=== PATIENT | male | born 1960 | race Caucasian/White ===

== ENCOUNTER → 2016-09-10 | Outpatient (CLI) | payer OTHER ==
[~2016-09-10] MED LIST: HYDR-2890 PO; HYDR1TAB PO
--- NOTE | 2016-09-10 10:13 | Diagnostic Imaging Report ---
INDICATION: Chronic left hip pain. FINDINGS: Two views of the left hip show no fracture or dislocation. The joint spaces are well-maintained. The articular surfaces are smooth. IMPRESSION: Negative left hip. Dictated by: Dictated on workstation # [id number]
== END ==
LOC: RAD 09:51
PROVIDERS: ATTEND Family Medicine
DX: M25.552 Pain in left hip (principal); G89.29 Other chronic pain
CPT/HCPCS: 73502

== ENCOUNTER 2017-03-22 10:27 | Emergency (ER) | payer OTHER ==
[~2017-03-22] VITALS: Ht 177.8 cm; Wt 94.8 kg
[2017-03-22] MEDS ORDERED: LOSA100T28 (11:11)
[2017-03-22] MEDS ORDERED: OXYC-465 (11:11)
[2017-03-22] MEDS ORDERED: ALPR0.5T7 (11:11)
[2017-03-22] MEDS ORDERED: DEXT20TA8 (11:11)
[2017-03-22] MEDS ORDERED: ALLO300T2 (11:11)
[2017-03-22] MEDS ORDERED: FLUT16SP22 (11:11)
[2017-03-22] MEDS ORDERED: AMLO5TAB2 (11:11)
[2017-03-22] MEDS ORDERED: AMOX-358 PO (11:30)
[2017-03-22] MEDS ORDERED: TETANUS,DIPTH,PERTUSS P/F (BOOSTRIX) 0.5 ML VIAL IM ONE (11:30)
--- NOTE | 2017-03-22 11:30 | ED Upper Extremity ---
General Chief Complaint: Laceration Stated Complaint: LT HAND PUCNTURED BY CATFISH Nursing Triage Note: Ambulatory to ED with reports of "well, I caught a catfish and you know those poker things that they have, that fish done shoved one into my hand." Patient has devin from fish at bedside. Nursing Sepsis Screen: No Definite Risk Source: patient History of Present Illness Time seen by provider: 11:15 Initial Comments PT STATES THAT HE WAS FISHING AND CAUGHT A CATFISH AND HE WAS STABBED IN LEFT HAND WITH A DEVIN FROM THE FISH DEVIN BROKE OFF AND PT PULLED IT OUT ( ARRIVES WITH THE DEVIN AT BEDSIDE) OCCURRED AT 0945 THIS AM PT IS RIGHT HANDED NO PARESTHESIAS OR MOTOR DEFICITS PT IS NOT UP TO DATE ON TETANUS VACCINATION PCP: DR. LAMBERT Allergies and Home Medications Allergies Coded Allergies: No Known Drug Allergies (Unverified , 03/15/12) Home Medications Allopurinol 300 Mg Tablet, (Reported) Alprazolam 0.5 Mg Tablet, (Reported) Amlodipine Besylate 5 Mg Tablet, (Reported) Amoxicillin/Potassium Clav 1 Each Tablet, 1 EACH PO BID, #20 Prescribed by: SERGIO EDMONDS on 03/22/17 1130 Dextroamphetamine/Amphetamine 20 Mg Tablet, (Reported) Fluticasone Propionate 16 Gm [place].susp, (Reported) Losartan Potassium 100 Mg Tablet, (Reported) Oxycodone HCl/Acetaminophen 1 Each Tablet, (Reported) Constitutional: no symptoms reported Musculoskeletal: see HPI Skin: see HPI Psychiatric/Neurological: No Symptoms Reported Past Slhzxni-Defanc-Wkzupt Hx Patient Social History Alcohol Use: Denies Use Recreational Drug Use: No Smoking Status: Current Everyday Smoker Type Used: Cigars, Smokeless Tobacco 2nd Hand Smoke Exposure: Yes Recent Foreign Travel: No Contact w/Someone Who Travel: No Recent Infectious Disease Expo: No Recent Hopitalizations: No Immunizations Up To Date Tetanus Booster (TDap): More than 5yrs Seasonal Allergies Seasonal Allergies: Yes Surgeries HX Surgeries: Yes Surgeries: Orthopedic Respiratory Hx Respiratory Disorders: No Cardiovascular Hx Cardiac Disorders: No Neurological Hx Neurological Disorders: No Genitourinary Hx Genitourinary Disorders: No Gastrointestinal Hx Gastrointestinal Disorders: No Musculoskeletal Hx Musculoskeletal Disorders: Yes Musculoskeletal Disorders: Arthritis, Chronic Back Pain, Gout Endocrine Hx Endocrine Disorders: No HEENT HX ENT Disorders: No Cancer Hx Cancer: No Psychosocial Hx Psychiatric Problems: No Integumentary HX Skin/Integumentary Disorder: No Blood Transfusions Hx Blood Disorders: No Physical Exam Vital Signs Capillary Refill : Less Than 3 Seconds General Appearance: WD/WN, no apparent distress Hand: Left (PUNCTURE SITE ON LEFT HAND IN WEB BETWEEN THUMB AND INDEX FINGER. NO BLEEDING. MILD SWELLING AND ERYTHEMA TO AREA. NO DRAINAGE. NO STREAKS. FULL ROM. MOTOR/SENSORY/VASCULAR INTACT. 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 Reviewed: Reviewed by Me Departure Impression Impression: Primary Impression: PUNCTURE WOUND LEFT HAND FROM CATFISH DEVIN Additional Impression: Dpslpcoaeo-yxtlgenjz-ikduhcx (DPT) vaccination administered at current visit Disposition: HOME, SELF-CARE Condition: Stable Departure-Patient Inst. Referrals: NETTIE LAMBERT MD (PCP/Family) Primary Care Physician Patient Instructions: Diphtheria and Tetanus Toxoids, and Acellular Pertussis Vaccine, Wound Care (DC) Add. Discharge Instructions: SOAK IN WARM SOAPY WATER 2-3 TIMES A DAY, APPLY ANTIBIOTIC OINTMENT AND FRESH DRESSING TYLENOL AND MOTRIN NEEDED FOR PAIN FOLLOW UP WITH DR. LAMBERT ON SATURDAY FOR FURTHER CARE RETURN TO ER IF WORSE All discharge instructions reviewed with patient and/or family. Voiced understanding. Scripts Amoxicillin/Potassium Clav (Augmentin 875-125 Tablet) 1 Each Tablet 1 EACH PO BID for INFECTION, #20 TAB Prov: SERGIO EDMONDS DO 03/22/17 SERGIO EDMONDS DO Mar 22, 2017 11:30
--- NOTE | 2017-03-22 12:06 | Diagnostic Imaging Report ---
INDICATION: Puncture wound. COMPARISON: None FINDINGS: 3 views of the left hand are obtained. No acute fracture, malalignment or osseous destructive process is seen. No radiopaque foreign bodies are demonstrated. There are degenerative changes of the interphalangeal joints. IMPRESSION: No acute abnormality is demonstrated. Dictated by: Dictated on workstation # [id number]
[2017-03-22 12:29] VITALS: BP 120/85
== END 2017-03-22 12:29 | disposition home or self-care (01) ==
LOC: EDUNIT# 10:27 → ER 10:30
DX: S61.442A Puncture wound with foreign body of left hand, initial encounter (principal); M19.90 Unspecified osteoarthritis, unspecified site; M10.9 Gout, unspecified; F17.290 Nicotine dependence, other tobacco product, uncomplicated; Z23 Encounter for immunization; W56.59XA Other contact with other fish, initial encounter
CPT/HCPCS: 73130; 90471; 90715; 99284

== ENCOUNTER 2017-04-12 06:41 | Day surgery (SDC) | payer OTHER ==
[2017-04-12] VITALS (9 sets, daily range): BP systolic 122–141; BP diastolic 75–87
[~2017-04-12] VITALS: Ht 177.8 cm; Wt 93.0 kg
[~2017-04-12 06:41] MED LIST changes: +ALLO300T2; +ALPR0.5T7; +AMLO5TAB2; +AMOX-358 PO; +DEXT20TA8; +FLUT16SP22; +LOSA100T28; +OXYC-465
--- NOTE | 2017-04-12 07:05 | ED Chest Pain ---
General Chief Complaint: Chest Pain Stated Complaint: CHEST PAIN Nursing Triage Note: PT TO ED 5 W/ S.O. FOR C/O CHEST PAIN ONSET 3-4 MOS, RECURRING THIS AM. PT DENIES PAIN ANY WORSE THAN NORMAL, HOWEVER STATES "TODAY HE TURNED AROUND ET CAME HOME BECAUSE OF IT." PT DENIES SOB, NAUSEA, DIAPHORESIS AT THIS TIME. DOES REPORT HAS SEEN PCP FOR C/O ET APPT W/ CARDIOLOGY WAS MADE BUT PT DID NOT KEEP APPT Nursing Sepsis Screen: No Definite Risk Source: patient, family Exam Limitations: no limitations History of Present Illness Time seen by provider: 07:00 Initial Comments The patient is a 57-year-old white male he reports that this had occurred off- and-on for several months. He had seen his personal physician and spoke of this. An appointment was made with cardiology. He reports that he went and more exotic testing was suggested. After options were given he believes it was a nuclear stress test. He thought this to be too much and did not have the testing done. He is continued to have these pains. He reports they are not related to exercise they may occur while in bed. On occasion they go to the back. There is no radiation to the arms or jaw. No shortness of breath or diaphoresis. There is no family history of coronary disease. He has been hypertensive for a number of years. And he takes medication. He is here at his 's insistence as he apparently started to work and then returned home because of chest pain. Timing/Duration: 1 hour Severity/Quality: mild, moderate Location: substernal Associated Symptoms: denies symptoms Allergies and Home Medications Allergies Coded Allergies: No Known Drug Allergies (Unverified , 03/15/12) Home Medications Allopurinol 300 Mg Tablet, (Reported) Alprazolam 0.5 Mg Tablet, (Reported) Amlodipine Besylate 5 Mg Tablet, (Reported) Fluticasone Propionate 16 Gm [place].susp, (Reported) Losartan Potassium 100 Mg Tablet, (Reported) Oxycodone HCl/Acetaminophen 1 Each Tablet, (Reported) Review of Systems Constitutional: see HPI EENTM: No Symptoms Reported Respiratory: No Symptoms Reported Cardiovascular: See HPI, Chest Pain Gastrointestinal: No Symptoms Reported Genitourinary: No Symptoms Reported Musculoskeletal: no symptoms reported Skin: no symptoms reported Psychiatric/Neurological: No Symptoms Reported Endocrine: No Symptoms Reported Hematologic/Lymphatic: No Symptoms Reported Past Gjvkpsn-Ahqrlg-Awndqy Hx Patient Social History Alcohol Use: Denies Use Recreational Drug Use: No Smoking Status: Current Everyday Smoker Type Used: Cigars, Smokeless Tobacco 2nd Hand Smoke Exposure: Yes Recent Foreign Travel: No Contact w/Someone Who Travel: No Recent Infectious Disease Expo: No Recent Hopitalizations: No Physical Abuse: No Sexual Abuse: No Mistreated: No Fear: No Immunizations Up To Date Tetanus Booster (TDap): More than 5yrs Seasonal Allergies Seasonal Allergies: Yes Surgeries History of Surgeries: Yes (hernia) Surgeries: Orthopedic Respiratory History of Respiratory Disorde: No Cardiovascular History of Cardiac Disorders: Yes Cardiac Disorders: Hypertension Neurological History of Neurological Disord: No Genitourinary History of Genitourinary Disor: No Gastrointestinal History of Gastrointestinal Di: No Musculoskeletal History of Musculoskeletal Dis: Yes Musculoskeletal Disorders: Arthritis, Chronic Back Pain, Gout Endocrine History of Endocrine Disorders: No HEENT History of HEENT Disorders: No Cancer History of Cancer: No Psychosocial History of Psychiatric Problem: No Suicide Risk Score: 0 Integumentary History of Skin or Integumenta: No Blood Transfusions History of Blood Disorders: No Physical Exam Vital Signs Vital Sign - Last 12Hours 04/12/17 06:42 Temp 98.1 Pulse 83 Resp 16 B/P (MAP) 152/92 Pulse Ox 98 O2 Delivery Room Air Capillary Refill : Less Than 3 Seconds General Appearance: No Apparent Distress, WD/WN, Other (very vague historian) HEENT: Normal ENT Inspection Neck: Normal Inspection Respiratory: Chest Non Tender, Lungs Clear, Normal Breath Sounds, No Accessory Muscle Use, No Respiratory Distress Cardiovascular: Regular Rate, Rhythm, No Edema, No Gallop, No JVD, No Murmur, Normal Peripheral Pulses Gastrointestinal: Normal Bowel Sounds, No Organomegaly, No Pulsatile Mass, Non Tender Extremity: Normal Capillary Refill, Normal Inspection, Normal Range of Motion, Non Tender, No Calf Tenderness, No Pedal Edema Neurologic/Psychiatric: Alert, Oriented x3, No Motor/Sensory Deficits, Normal Mood/Affect Skin: Normal Color, Warm/Dry Lymphatic: No Adenopathy Progress/Results/Core Measures Results/Orders Lab Results Laboratory Tests Test 04/12/17 06:49 Range/Units White Blood Count 11.5 H 4.3-11.0 10^3/uL Red Blood Count 4.32 L 4.35-5.85 10^6/uL Hemoglobin 14.1 13.3-17.7 G/DL Hematocrit 41 40-54 % Mean Corpuscular Volume 95 80-99 FL Mean Corpuscular Hemoglobin 33 25-34 PG Mean Corpuscular Hemoglobin Concent 34 32-36 G/DL Red Cell Distribution Width 13.3 10.0-14.5 % Platelet Count 217 130-400 10^3/uL Mean Platelet Volume 10.0 7.4-10.4 FL Neutrophils (%) (Auto) 70 42-75 % Lymphocytes (%) (Auto) 19 12-44 % Monocytes (%) (Auto) 7 0-12 % Eosinophils (%) (Auto) 3 0-10 % Basophils (%) (Auto) 1 0-10 % Neutrophils # (Auto) 8.1 H 1.8-7.8 X 10^3 Lymphocytes # (Auto) 2.1 1.0-4.0 X 10^3 Monocytes # (Auto) 0.8 0.0-1.0 X 10^3 Eosinophils # (Auto) 0.4 H 0.0-0.3 10^3/uL Basophils # (Auto) 0.1 0.0-0.1 10^3/uL Sodium Level 141 135-145 MMOL/L Potassium Level 3.6 3.6-5.0 MMOL/L Chloride Level 105 98-107 MMOL/L Carbon Dioxide Level 24 21-32 MMOL/L Anion Gap 12 5-14 MMOL/L Blood Urea Nitrogen 13 7-18 MG/DL Creatinine 0.86 0.60-1.30 MG/DL Estimat Glomerular Filtration Rate > 60 BUN/Creatinine Ratio 15 Glucose Level 92 70-105 MG/DL Calcium Level 9.2 8.5-10.1 MG/DL Total Bilirubin 0.6 0.1-1.0 MG/DL Aspartate Amino Transf (AST/SGOT) 22 5-34 U/L Alanine Aminotransferase (ALT/SGPT) 28 0-55 U/L Alkaline Phosphatase 112 40-136 U/L Troponin I < 0.30 <0.30 NG/ML Total Protein 6.8 6.4-8.2 GM/DL Albumin 4.3 3.2-4.5 GM/DL My Orders Orders - JEET VICK MD Ekg Tracing (04/12/17 06:48) Cbc With Automated Diff (04/12/17 06:48) Comprehensive Metabolic Panel (04/12/17 06:48) Troponin I (04/12/17 06:48) Chest 1 View, Ap/Pa Only (04/12/17 06:48) Vital Signs/I&O Vital Sign - Last 12Hours 04/12/17 06:42 Temp 98.1 Pulse 83 Resp 16 B/P (MAP) 152/92 Pulse Ox 98 O2 Delivery Room Air Blood Pressure Mean: 112 Departure Communication (Admissions) Progress Notes Workup returned as negative. In requestioning the patient it was determined that the cardiology consultation and planned workup was actually several years ago and not in the last [address] Caballero who is on-call cardiology for today was paged and responded by his appearance at 0800. After his discussion with the patient's he informed me that the patient had recurrence of chest pain and the plan would just be to go directly to the catheter lab. Impression Impression: Primary Impression: chest pain etiology unclear Disposition: ADMITTED INPATIENT Condition: Stable/Unchanged Admissions Decision to Admit Reason: Admit from ER (General) Decision to Admit/Date: Apr 12, 2017 Time/Decision to Admit Time: 08:12 Departure-Patient Inst. Referrals: NETTIE LAMBERT MD (PCP/Family) Primary Care Physician JEET VICK MD Apr 12, 2017 07:05
[2017-04-12 07:11] LABS: BASOPHILS # (AUTO) 0.1 10^3/uL (0.0-0.1); BASOPHILS % (AUTO) 1 % (0-10); EOSINOPHILS # (AUTO) 0.4 10^3/uL (0.0-0.3); EOSINOPHILS % (AUTO) 3 % (0-10); LYMPHOCYTES # (AUTO) 2.1 X 10^3 (1.0-4.0); LYMPHOCYTES % (AUTO) 19 % (12-44); MEAN CORPUSCULAR HEMOGLOBIN 33 PG (25-34); MEAN CORPUSCULAR HGB CONC 34 G/DL (32-36); MEAN CORPUSCULAR VOLUME 95 FL (80-99); MONOCYTES # (AUTO) 0.8 X 10^3 (0.0-1.0); MONOCYTES % (AUTO) 7 % (0-12); NEUTROPHILS # (AUTO) 8.1 X 10^3 (1.8-7.8); NEUTROPHILS % (AUTO) 70 % (42-75); PLATELET COUNT 217 10^3/uL (130-400); RED BLOOD COUNT 4.32 10^6/uL (4.35-5.85); RED CELL DISTRIBUTION WIDTH 13.3 % (10.0-14.5); WHITE BLOOD COUNT 11.5 10^3/uL (4.3-11.0)
--- NOTE | 2017-04-12 07:26 | Diagnostic Imaging Report ---
INDICATION: Chest pain. COMPARISON: 04/13/2015 FINDINGS: Upright portable view of the chest is obtained. Heart size is normal. The pulmonary vessels appear unremarkable. There is no pneumothorax, mediastinal widening or pleural fluid. Lungs are clear. IMPRESSION: No acute abnormality is demonstrated. No significant interval change from the prior study. Dictated by: Dictated on workstation # [id number]
[2017-04-12 07:27] LABS: ALANINE AMINOTRANSFERASE 28 U/L (0-55); ALBUMIN 4.3 GM/DL (3.2-4.5); ANION GAP 12 MMOL/L (5-14); ASPARTATE AMINO TRANSFERASE 22 U/L (5-34); BILIRUBIN,TOTAL 0.6 MG/DL (0.1-1.0); BLOOD UREA NITROGEN 13 MG/DL (7-18); BUN/CREATININE RATIO 15; CALCIUM 9.2 MG/DL (8.5-10.1); CARBON DIOXIDE 24 MMOL/L (21-32); CHLORIDE 105 MMOL/L (98-107); CREATININE SERUM 0.86 MG/DL (0.60-1.30); GFR ESTIMATED > 60; GLUCOSE 92 MG/DL (70-105); POTASSIUM 3.6 MMOL/L (3.6-5.0); SODIUM 141 MMOL/L (135-145); TOTAL PROTEIN 6.8 GM/DL (6.4-8.2)
[2017-04-12 07:33] LABS: TROPONIN I < 0.30 NG/ML (<0.30)
[2017-04-12] MEDS ORDERED: NS IV 1000 ML 1,000 ML ONE (08:06)
[2017-04-12] MEDS ORDERED: HEParin (CATH LAB) 2,000 ML IV ONE (08:06)
[2017-04-12] MEDS ORDERED: fentaNYL INJECTION 100 MCG/2 ML AMP ONE (08:07)
[2017-04-12] MEDS ORDERED: MIDAZOLAM 5 MG/5 ML (VERSED) VIAL ONE (08:07)
--- NOTE | 2017-04-12 08:38 | Cardiology History & Physical ---
HPI-Cardiology Cardiology Consultation Date of Consultation 04/12/17 Date of Admission Time Seen by Provider: 08:35 Indication: chest pain HPI 57 years old gentleman with history of hypertension, tobaccoism, family history of heart disease, has been having episodes of chest pain, seen by deliverer outside in the remote past and offered a stress test, patient did not want to have any tests done. For the last few days he has been having recurrent episodes of chest pain described it as dull achiness on the left side of his chest not radiating. No shortness of breath, palpitation, syncope or near syncopal episodes, the chest pain became worse today. Came into the emergency room for evaluation. Upon my evaluation patient was still having active chest pain waxing and waning. We discussed the management plan recommended stress test versus cardiac catheterization due to the active chest pain decided to proceed with cardiac catheterization. PMH-Cardiology Immunizations Up To Date Tetanus Booster (DTap): More than 5yrs Seasonal Allergies Seasonal Allergies: Yes Surgeries Yes (hernia) Respiratory No Cardiovascular Yes Neurological No Genitourinary No Gastrointestinal No Musculoskeletal Yes Arthritis, Chronic Back Pain, Gout Endocrine No HEENT No Cancer No Psychosocial No Integumentary No Blood Transfusions No Other PMHx degenerative joint disease and back pain Social History Patient Social History Marrital Status: Employed/Student: employed Alcohol Use: Denies Use Recreational Drug Use: No Smoking: Current every day smoker Recent Foreign Travel: No Contact w/other who traveled: No Recent Infectious Disease Expo: No Family Hx Other Strong family history of heart disease ROS-Cardiology Review of Systems General: No Chills, No Night Sweats, No Fatigue, No Malaise, No Appetite HEENT: No Head Aches, No Visual Changes, No Eye Pain, No Ear Pain, No Dysphasia , No Sinus Congestion, No Post Nasal Drip, No Sore Throat Pulmonary: No Dyspnea, No Cough, No Pleuritic Chest Pain Cardiovascular: Chest Pain, No: Palpitations, Orthopnea, Paroxysmal Noc. Dyspnea, Edema, Lt Headedness Gastrointestinal: No: Nausea, Vomiting, Abdominal Pain, Diarrhea, Constipation , Melena, Hematochezia Genitourinary: No Dysuria, No Frequency, No Incontinence, No Hematuria, No Retention Musculoskeletal: neck pain, back pain, No: shoulder pain, arm pain, hand pain, leg pain, foot pain Neurological: No: Weakness, Numbness, Incoordination, Change in speech, Confusion, Seizures Home Medications & Allergies Allergies: Coded Allergies: No Known Drug Allergies (Unverified , 03/15/12) Home Medication List Reviewed: Yes Exam-Cardiology Vital Signs Vital Signs Date Time Temp Pulse Resp B/P (MAP) Pulse Ox O2 Delivery O2 Flow Rate FiO2 04/12/17 08:24 69 18 97 Room Air 04/12/17 06:42 98.1 152/92 Exam General Appearance: Alert, Oriented X3, Cooperative, No Acute Distress HEENT: Atraumatic, PERRLA Respiratory: Clear to Auscultation, Normal Air Movement Cardiovascular: Regular Rate, Normal S1, Normal S2, No Murmurs Abdominal: Normal Bowel Sounds, Soft, No Tenderness, No Hepatosplenomegaly, No Masses Extremities: No Clubbing, No Cyanosis, No Edema, Normal Pulses, No Tenderness/ Swelling Skin: No Rashes, No Breakdown, No Significant Lesion Neuro: Normal Gait, Normal Speech, Strength at 5/5 X4 Ext, Normal Tone, Sensation Intact Psych/Mental Status: Mental Status NL, Mood NL Results Labs Labs Laboratory Tests 04/12/17 06:49: White Blood Count 11.5H, Red Blood Count 4.32L, Hemoglobin 14.1, Hematocrit 41, Mean Corpuscular Volume 95, Mean Corpuscular Hemoglobin 33, Mean Corpuscular Hemoglobin Concent 34, Red Cell Distribution Width 13.3, Platelet Count 217, Mean Platelet Volume 10.0, Neutrophils (%) (Auto) 70, Lymphocytes (%) (Auto) 19 , Monocytes (%) (Auto) 7, Eosinophils (%) (Auto) 3, Basophils (%) (Auto) 1, Neutrophils # (Auto) 8.1H, Lymphocytes # (Auto) 2.1, Monocytes # (Auto) 0.8, Eosinophils # (Auto) 0.4H, Basophils # (Auto) 0.1, Sodium Level 141, Potassium Level 3.6, Chloride Level 105, Carbon Dioxide Level 24, Anion Gap 12, Blood Urea Nitrogen 13, Creatinine 0.86, Estimat Glomerular Filtration Rate > 60, BUN/ Creatinine Ratio 15, Glucose Level 92, Calcium Level 9.2, Total Bilirubin 0.6, Aspartate Amino Transf (AST/SGOT) 22, Alanine Aminotransferase (ALT/SGPT) 28, Alkaline Phosphatase 112, Troponin I < 0.30, Total Protein 6.8, Albumin 4.3 04/12/17 08:45: A/P-Cardiology Admission Diagnosis chest pain Hypertension Tobaccoism Family history of heart disease Assessment/Plan Chest pain, nonspecific etiology, recurrent chest pain, patient is having active chest pain during the interview, I'm hesitant to proceed with exercise stress test while patient is having the pain. Discussed the management plan, recommended cardiac catheterization possible PTCA. Hypertension, restart home medication monitor blood pressure Tobaccoism, educated on smoking cessation Strong family history of heart disease Addendum: Short stay summary Patient was admitted directly to the cardiac catheterization laboratory, underwent procedure showing no obstructive disease in the carotid system, hypertensive changes in the aortic arch, normal left ventricular size and systolic function, patient will be discharged home today. Assurance was given. Educated on smoking cessation. Had mild hyperlipidemia, educated on diet control, I'll reevaluate lipid profile and follow-up as an outpatient. Final diagnosis Chest pain nonspecific etiology Hypertension Back pain Tobaccoism Clinical Quality Measures AMI/AHF: ASA po Prior to arrival: Yes (81MG) JUDE CENTENO MD Apr 12, 2017 08:38
--- NOTE | 2017-04-12 08:39 | Cardiac Procedure Note-CS/ASA ---
Pre-Procedure Note Pre-Op Procedure Note H&P Reviewed The H&P was reviewed, patient examined and no changes noted. Date H&P Reviewed: Apr 12, 2017 Time H&P Reviewed: 08:38 Conscious Sedation Pre-Proced Time Reviewed: 08:38 ASA Class: 3 Airway Mallampati Classification: ([place] appropriate class) I. II. III, IV Lungs Heart ASA score ASA 1: a normal healthy patient ASA 2: a patient with a mild systemic disease (mid diabetes, controlled hypertension, obesity x ASA 3: a patient with a severe systemic disease that limits activity (angina , COPD, prior Myocardial infarction) ASA 4: a patient with an incapacitating disease that is a constant threat to life (CHF, renal failure) ASA 5: a moribund patient not expected to survive 24 hrs. (ruptured aneurysm) ASA 6: a declared brain patient whose organs are being harvested. For emergent operations, add the letter E after the classification Grade 3 Sedation Plan: Analgesia, Amnesia, Plan communicated to team members, Discussed options with patient/fam, Discussed risks with patient/fam Note The patient is an appropriate candidate to undergo the planned procedure, sedation, and anesthesia. The patient immediately re-assessed prior to indication. JUDE CENTENO MD Apr 12, 2017 08:38
[2017-04-12] MEDS ORDERED: NS IV 1000 ML 1,000 ML IV SCH ×2 (08:45→08:53)
--- NOTE | 2017-04-12 08:55 | Discharge Inst-Post CATH ---
Discharge Inst-CATH Post Cardiac Cath D/C Inst Follow Up/Plan Appointment with Dr Caballero's office in 2-4 weeks CARDIAC CATH DISCHARGE INSTRUCTIONS *Hold Metformin for 48 hours post heart cath. ACTIVITY * Go Home directly and rest. * Limit activity of the leg (or wrist if it was used) for 7 days including aerobics, swimming, jogging, bicycling, etc. * Restrict stair-climbing for 7 days if possible, if not, climb up with your non -cath leg, then bring together on the same step. * Avoid lifting, pushing, pulling or excessive movement of the affected extremity for 7 days. * Customary sexual activity may be resumed after 2 days-use caution not to use a position that strains or causes pain to the affected extremity. * No driving for 24 hours. * NO SMOKING. * Avoid straining for bowel movements for 7 days. * Gentle walking on level ground is allowed. * Returning to work will depend on the type of procedure and the results. Your doctor will discuss this with you. CALL YOUR DOCTOR FOR ANY OF THE FOLLOWING: *If bleeding from the puncture site occurs- Apply gentle pressure to site with clean cloth and call your doctor or EMS. * If a knot or lump forms under the skin, increases in size, or causes pain. * If bruising appears to be worsening or moving further down your leg instead of disappearing. * Temperature above 101 F. CARE OF YOUR GROIN INCISION; * Bruising or purple discoloration of the skin near the puncture site is common. * You may shower only, no bathtub bathing for 5 days. Be careful to avoid slipping as your leg may feel stiff. * If a closure device was used on your femoral artery, please see the attached guide regarding care of the device and your leg. * REMOVE the dressing from your groin the next day after your procedure in the shower. CARE OF YOUR WRIST INCISION; * Bruising or purple discoloration of the skin near the puncture site is common. * You may shower. * DO NOT submerge wrist. * Remove dressing in 24 hours. JUDE CABALLERO MD Apr 12, 2017 08:55
[2017-04-12] MEDS ORDERED: PATIENT MAY USE OWN MEDS, ALL PO SCH (09:00)
--- NOTE | 2017-04-12 09:00 | Cardiac Cath Report ---
Cardiac Cath Report Physician (s)/Vacuum Truck Driver (s) Physician JUDE CENTENO MD Pre-Procedure Diagnosis Pre-Procedure Diagnosis: CP Post-Procedure Note Procedure Start Date: Apr 12, 2017 Procedure Start Time: 08:30 Name of Procedure: left heart catheterization Left ventriculogram Aortic arch angiogram Findings/Procedure Note PROCEDURE NOTE: After explaining the procedure to the patient, all pros and cons were explained, all questions were answered. The patient signed the consent and then she was placed on the cardiac catheterization laboratory. The patient was placed on the cardiac catheterization laboratory. Groin was prepped SL fashion local anesthesia was used. Sheath placed in the artery. Jami right and left catheter were used to access the coronary system. Pigtail was used to access the left ventricular cavity. Left ventriculogram was done Aortic arch angiogram was done At the end of the procedure the sheath was removed. Closure device was used FINDINGS: Hemodynamics LV 123/16 end diastolic pressure of 16 Aorta 123/73 mean of 95 ANATOMY: Left Main is free of obstructive disease Left Anterior Descending is free of obstructive disease Left Circumflex is free of obstructive disease Right Coronory Artery is free of obstructive disease LV Gram was done, normal left ventricular size and contractility, estimated ejection fraction 50 percent Aorta aortic arch angiogram evaluation showed hypertensive changes in the aortic arch, tortuous right innominate artery, no obstructive disease in the carotid artery or subclavian. CONCLUSION: 1. No obstructive disease in the coronary system 2. Normal left ventricular size and systolic function estimated ejection fraction 50 percent 3. Hypertensive changes in the aortic arch, tortuous innominate artery, nonobstructive disease in the great neck vessels DISCUSSION AND RECOMMENDATION: chest pain is unlikely to be cardiac, medical therapy is recommended. No intervention is warranted Anesthesia Type: Conscious Sedation Estimated blood loss (mL): 10 ml Contrast Amount: 61 ml Total Radiation Dose: 166 mGy Post-Procedure Diagnosis Post-operative diagnosis: Chest pain nonspecific etiology Hypertension Back pain Tobaccoism JUDE CENTENO MD Apr 12, 2017 09:00
[2017-04-12 09:04] LABS: INR 0.9 (0.8-1.4); PROTHROMBIN TIME PATIENT 12.1 SEC (12.2-14.7)
== END 2017-04-12 14:15 | disposition home or self-care (01) ==
LOC: EDUNIT# 06:41 → ER 06:43 → CATH 08:10 → ICU 09:13 → CATH 14:15
PROVIDERS: ATTEND Internal Medicine Cardiovascular Disease
DX: R07.89 Other chest pain (principal); I10 Essential (primary) hypertension; Z72.0 Tobacco use; Z82.49 Family history of ischemic heart disease and other diseases of the circulatory system; Z79.899 Other long term (current) drug therapy
CPT/HCPCS: 36221; 36415; 71010; 80053; 84484; 85025; 85610; 85730; 93005; 93458

== ENCOUNTER → 2017-10-02 | Outpatient (CLI) | payer OTHER ==
[2017-10-02 12:42] LABS: ALANINE AMINOTRANSFERASE 25 U/L (0-55); ALBUMIN 4.3 GM/DL (3.2-4.5); ALKALINE PHOSPHATASE 92 U/L (40-136); BILIRUBIN,TOTAL 0.6 MG/DL (0.1-1.0); BUN/CREATININE RATIO 16; CALCIUM 9.5 MG/DL (8.5-10.1); CARBON DIOXIDE 28 MMOL/L (21-32); CHLORIDE 106 MMOL/L (98-107); CHOLESTEROL 187 MG/DL (< 200); CREATININE SERUM 0.81 MG/DL (0.60-1.30); GFR ESTIMATED > 60; GLUCOSE 88 MG/DL (70-105); HDL CHOLESTEROL 41 MG/DL (40-60); SODIUM 142 MMOL/L (135-145); TOTAL PROTEIN 6.8 GM/DL (6.4-8.2); TRIGLYCERIDES 173 MG/DL (<150); VLDL CHOLESTEROL 35 MG/DL (5-40)
== END ==
LOC: LAB 12:10
PROVIDERS: ATTEND Physician Assistant
DX: R07.89 Other chest pain (principal); I10 Essential (primary) hypertension; E78.5 Hyperlipidemia, unspecified; Z72.0 Tobacco use
CPT/HCPCS: 36415; 80053; 80061

== ENCOUNTER 2017-10-11 06:59 | Day surgery (SDC) | payer OTHER ==
[~2017-10-11] VITALS: Ht 177.8 cm; Wt 93.0 kg
[2017-10-11 07:10] VITALS: BP 140/88
[2017-10-11] MEDS ORDERED: LIDOCAINE PF 2% 5 ML (XYLOCAINE) VIAL ONE (07:30)
[2017-10-11] MEDS ORDERED: proPOfol 200 MG/20 ML (DIPRIVAN) VIAL IV ONE (07:30)
[2017-10-11] MEDS ORDERED: fentaNYL INJECTION 100 MCG/2 ML AMP ONE (07:30)
[2017-10-11] MEDS ORDERED: MIDAZOLAM 2 MG/2 ML (VERSED) VIAL ONE (07:30)
[2017-10-11] MEDS ORDERED: ONDANSETRON 4 MG/2 ML (SDV) Z0FRAN ONE (07:31)
[2017-10-11] MEDS ORDERED: SEVOFLURANE (ULTANE) 15 ML INHAL SOLN ONE ×2 (07:31→08:10)
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
[2017-10-11] MEDS ORDERED: BSS 15 ML ONE (08:01)
[2017-10-11] MEDS ORDERED: DEXAMETHASONE 10 MG/ML (DECADRON) 1 ML VIAL ONE (08:04)
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
[2017-10-11] MEDS ORDERED: MEPERIDINE (DEMEROL) INJ 50 MG/ML IVP PRN (08:30)
[2017-10-11] MEDS ORDERED: ONDANSETRON 4 MG/2 ML (SDV) Z0FRAN IVP PRN (08:30)
[2017-10-11] MEDS ORDERED: APAP 325 MG/10.15 ML LIQ (TYLENOL) UDC PO PRN (08:30)
[2017-10-11] MEDS ORDERED: morphine INJ 10 MG/ML 1ML (SYR OR VIAL) IVP PRN (08:30)
[2017-10-11 09:05] VITALS: BP 129/76
[2017-10-11 09:35] VITALS: BP 121/77
[2017-10-11 10:05] VITALS: BP 124/75
[2017-10-11] MEDS ORDERED: CIPR5DRO OP (10:13)
[2017-10-11] MEDS ORDERED: LACTATED RINGERS 1,000 ML IV PRN (11:57)
--- NOTE | 2017-10-11 15:00 | Anesthesia-General Post-Op ---
General Patient Condition Mental Status/LOC: Same as Preop Cardiovascular: Satisfactory Nausea/Vomiting: Absent Respiratory: Satisfactory Pain: Controlled Complications: Absent Post Op Complications Complications None Follow Up Care/Instructions Patient Instructions None needed. Anesthesia/Patient Condition Patient Condition Patient is doing well, no complaints, stable vital signs, no apparent adverse anesthesia problems. No complications reported per nursing. GRECIA BOURGEOIS CRNA Oct 11, 2017 15:00
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
== END 2017-10-11 10:25 | disposition home or self-care (01) ==
LOC: SDC 06:59
PROVIDERS: ATTEND Otolaryngology Otolaryngology/Facial Plastic Surgery
DX: S00.452A Superficial foreign body of left ear, initial encounter (principal); I10 Essential (primary) hypertension; F17.290 Nicotine dependence, other tobacco product, uncomplicated; Z79.82 Long term (current) use of aspirin; Z79.899 Other long term (current) drug therapy
CPT/HCPCS: 87081

== ENCOUNTER 2018-06-02 20:07 | Emergency (ER) | payer OTHER ==
[~2018-06-02] VITALS: Ht 177.8 cm; Wt 95.7 kg
[~2018-06-02 20:07] MED LIST changes: -AMLO5TAB2; +AMLO5TAB7; +CIPR5DRO OP; -LOSA100T28; +LOSA100T8
--- NOTE | 2018-06-02 20:38 | ED Abdominal Pain ---
General Stated Complaint: PELVIC/GENITAL PAIN Source of Information: Patient, Family () Exam Limitations: No Limitations History of Present Illness Date Seen by Provider: Jun 02, 2018 Time Seen by Provider: 20:38 Initial Comments Patient is a 58 year old male who presents to the emergency room with reports of lower abdominal pain that radiated to his flank/groin area and hematuria that started this morning. He reports history of kidney stones. He reports taking oxycodone 10mg for the pain and it has controlled his pain. Denies nausea or vomiting. Timing/Duration: 12 Hours Severity/Quality: Mild Location: Suprapubic Radiation: Flank, Groin Modifying Factors: Improves With Analgesics Associated Symptoms: Denies Symptoms Allergies and Home Medications Allergies Coded Allergies: No Known Drug Allergies (Unverified , 03/15/12) Home Medications Ciprofloxacin HCl 5 Ml Drops, 3 DROPS OP BID 3 Drops Each Ear Prescribed by: TOYA TODD on 10/11/17 1013 Sulfamethoxazole/Trimethoprim 1 Each Tablet, 1 EACH PO BID Prescribed by: DUY GREGG on 06/02/18 2131 Patient Home Medication List Home Medication List Reviewed: Yes Review of Systems Review of Systems Constitutional: no symptoms reported, see HPI Gastrointestinal: See HPI, Abdominal Pain Genitourinary: See HPI, Flank Pain, Hematuria All Other Systems Reviewed Negative Unless Noted: Yes Past Xmzrkju-Zabarn-Tpwshc Hx Past Med/Social Hx: Reviewed Nursing Past Med/Soc Hx Patient Social History Type Used: Cigars, Smokeless Tobacco 2nd Hand Smoke Exposure: Yes Recent Foreign Travel: No Contact w/Someone Who Travel: No Recent Hopitalizations: No Immunizations Up To Date Tetanus Booster (TDap): More than 5yrs PED Vaccines UTD: No Date of Influenza Vaccine: Apr 17, 2017 Seasonal Allergies Seasonal Allergies: Yes Past Medical History Surgeries: Yes (hernia) Orthopedic Respiratory: No Cardiac: Yes Hypertension Neurological: No Reproductive Disorders: No Genitourinary: No Gastrointestinal: No Musculoskeletal: Yes Arthritis, Chronic Back Pain, Gout Endocrine: No HEENT: No Cancer: No Psychosocial: No Integumentary: No Blood Disorders: No Family Medical History Reviewed Nursing Family Hx Physical Exam Vital Signs Vital Signs - First Documented 06/02/18 06/02/18 20:35 21:57 Temp 98.0 Pulse 86 Resp 17 B/P (MAP) 170/90 (116) Pulse Ox 98 Capillary Refill : Height/Weight/BMI Height: 5'10.00" Weight: 205lbs. 0.0oz. 92.401041xm; 29.4 BMI Method:Stated General Appearance: WD/WN, no apparent distress Neck: non-tender, full range of motion, supple, normal inspection Respiratory: chest non-tender, lungs clear, normal breath sounds, no respiratory distress, no accessory muscle use Cardiovascular: normal peripheral pulses, regular rate, rhythm, no edema, no gallop, no JVD, no murmur Gastrointestinal: normal bowel sounds, non tender, soft, no organomegaly, no pulsatile mass Extremities: normal capillary refill Neurologic/Psychiatric: alert, normal mood/affect, oriented x 3 Skin: normal color Progress/Results/Core Measures Results/Orders Lab Results Laboratory Tests Test 06/02/18 20:33 06/02/18 20:45 Range/Units Urine Color YELLOW Urine Clarity SLIGHTLY CLOUDY Urine pH 6 5-9 Urine Specific [place] 1.025 H 1.016-1.022 Urine Protein 2+ H NEGATIVE Urine Glucose (UA) NEGATIVE NEGATIVE Urine Ketones NEGATIVE NEGATIVE Urine Nitrite NEGATIVE NEGATIVE Urine Bilirubin NEGATIVE NEGATIVE Urine Urobilinogen NORMAL NORMAL MG/DL Urine Leukocyte Esterase 1+ H NEGATIVE Urine RBC (Auto) 5+ H NEGATIVE Urine RBC 2-5 H /HPF Urine WBC RARE /HPF Urine Crystals NONE /LPF Urine Bacteria NEGATIVE /HPF Urine Casts NONE /LPF Urine Mucus SMALL H /LPF Urine Culture Indicated NO White Blood Count 11.2 H 4.3-11.0 10^3/uL Red Blood Count 4.58 4.35-5.85 10^6/uL Hemoglobin 14.9 13.3-17.7 G/DL Hematocrit 43 40-54 % Mean Corpuscular Volume 94 80-99 FL Mean Corpuscular Hemoglobin 33 25-34 PG Mean Corpuscular Hemoglobin Concent 35 32-36 G/DL Red Cell Distribution Width 13.4 10.0-14.5 % Platelet Count 257 130-400 10^3/uL Mean Platelet Volume 10.0 7.4-10.4 FL Neutrophils (%) (Auto) 69 42-75 % Lymphocytes (%) (Auto) 21 12-44 % Monocytes (%) (Auto) 7 0-12 % Eosinophils (%) (Auto) 2 0-10 % Basophils (%) (Auto) 1 0-10 % Neutrophils # (Auto) 7.7 1.8-7.8 X 10^3 Lymphocytes # (Auto) 2.4 1.0-4.0 X 10^3 Monocytes # (Auto) 0.8 0.0-1.0 X 10^3 Eosinophils # (Auto) 0.3 0.0-0.3 10^3/uL Basophils # (Auto) 0.1 0.0-0.1 10^3/uL Sodium Level 142 135-145 MMOL/L Potassium Level 4.1 3.6-5.0 MMOL/L Chloride Level 107 98-107 MMOL/L Carbon Dioxide Level 22 21-32 MMOL/L Anion Gap 13 5-14 MMOL/L Blood Urea Nitrogen 20 H 7-18 MG/DL Creatinine 1.47 H 0.60-1.30 MG/DL Estimat Glomerular Filtration Rate 49 BUN/Creatinine Ratio 14 Glucose Level 111 H 70-105 MG/DL Calcium Level 10.2 H 8.5-10.1 MG/DL Corrected Calcium 8.5-10.1 MG/DL Total Bilirubin 0.4 0.1-1.0 MG/DL Aspartate Amino Transf (AST/SGOT) 18 5-34 U/L Alanine Aminotransferase (ALT/SGPT) 26 0-55 U/L Alkaline Phosphatase 99 40-136 U/L Total Protein 7.9 6.4-8.2 GM/DL Albumin 4.9 H 3.2-4.5 GM/DL Amylase Level 51 25-125 U/L Lipase 56 8-78 U/L My Orders Orders - DUY GREGG Ua Culture If Indicated (06/02/18 20:28) Ct Abd/Pelvis Wo(Kidney Stone) (06/02/18 20:38) Abdomen/Kub 1view (06/02/18 20:38) Saline Lock/Iv-Start (06/02/18 20:38) Comprehensive Metabolic Panel (06/02/18 20:38) Lipase (06/02/18 20:38) Amylase (06/02/18 20:38) Cbc With Automated Diff (06/02/18 20:38) Vital Signs/I&O 06/02/18 06/02/18 20:35 21:57 Temp 98.0 98.0 Pulse 86 86 Resp 17 17 B/P (MAP) 170/90 (116) 170/90 (116) Pulse Ox 98 Progress Progress Note : Time: 21:27 Progress Note I seen and evaluated the patient. I've informed him of his laboratory and imaging studies. He reports that he takes oxycodone for chronic pain medication at home and agrees to take these for pain relief. He is an established patient of Dr. Brown and will be calling to make an appointment to follow-up within 1 week. He agrees with plan of care, plans for discharge, return precautions were given. Voices no questions or concerns. Diagnostic Imaging Diagonstic Imaging: Xray, CT Plain Films/CT/US/NM/MRI: abdomen, pelvis Comments NAME: XIAO BOTELLO [facility] REC#: [id number] PT STATUS: REG ER : 1960 PHYSICIAN: DUY GREGG ADMIT DATE: 06/02/18/ER Signed Date of Exam: 06/02/18 ABDOMEN/KUB 1VIEW INDICATION: Left groin pain with hematuria. EXAM: KUB. FINDINGS: There are multiple calculi scattered throughout the calyces of both kidneys, the largest measuring approximately 7 mm. Renal outlines are smooth. There are multiple calcifications in the pelvis. There is one calcification in the left pelvis which measures approximately 3 mm which could represent distal ureteral calculus with patient's symptoms. The majority of these appear to be phleboliths. IMPRESSION: 1. Bilateral nephrolithiasis. 2. Question of possible small left distal ureteral stone. Dictated by: Dictated on workstation # [id number] Dict: 06/02/182108 Trans: 06/02/182133 Interpreted by: MELE MANRIQUEZ MD Electronically signed by: MELE MANRIQUEZ MD 06/02/182133 NAME: IXAO BOTELLO [facility] REC#: [id number] PT STATUS: REG ER : 1960 PHYSICIAN: DUY GREGG ADMIT DATE: 06/02/18/ER Signed Date of Exam: 06/02/18 ABDOMEN/KUB 1VIEW INDICATION: Left groin pain with hematuria. EXAM: KUB. FINDINGS: There are multiple calculi scattered throughout the calyces of both kidneys, the largest measuring approximately 7 mm. Renal outlines are smooth. There are multiple calcifications in the pelvis. There is one calcification in the left pelvis which measures approximately 3 mm which could represent distal ureteral calculus with patient's symptoms. The majority of these appear to be phleboliths. IMPRESSION: 1. Bilateral nephrolithiasis. 2. Question of possible small left distal ureteral stone. Dictated by: Dictated on workstation # [id number] Dict: 06/02/182108 Trans: 06/02/182133 Interpreted by: MELE MANRIQUEZ MD Electronically signed by: MELE MANRIQUEZ MD 06/02/182133 Reviewed: Reviewed by Me Departure Impression Primary Impression: Kidney stone Disposition: HOME, SELF-CARE Condition: Stable/Unchanged Departure-Patient Inst. Decision time for Depature: 21:28 Referrals: NETTIE LAMBERT MD (PCP/Family) Primary Care Physician Patient Instructions: Kidney Stones (DC) Add. Discharge Instructions: Take medication as directed. Take your home medication as previously prescribed for pain medication. Drink plenty of clear liquids like water to stay hydrated. Drain all urine and if you should pass a stone take it with you to your follow- up appointment. Follow-up with Dr. Brown will within 1 week for recheck. Return back to the emergency room for any worsening symptoms or concerns as needed. Scripts Sulfamethoxazole/Trimethoprim (Bactrim Ds Tablet) 1 Each Tablet 1 EACH PO BID for 7 Days, #14 TAB Prov: DUY GREGG 06/02/18 DUY GREGG Jun 02, 2018 20:38
[2018-06-02 20:50] LABS: BASOPHILS # (AUTO) 0.1 10^3/uL (0.0-0.1); BASOPHILS % (AUTO) 1 % (0-10); EOSINOPHILS # (AUTO) 0.3 10^3/uL (0.0-0.3); EOSINOPHILS % (AUTO) 2 % (0-10); HEMATOCRIT 43 % (40-54); HEMOGLOBIN 14.9 G/DL (13.3-17.7); LYMPHOCYTES # (AUTO) 2.4 X 10^3 (1.0-4.0); LYMPHOCYTES % (AUTO) 21 % (12-44); MEAN CORPUSCULAR HEMOGLOBIN 33 PG (25-34); MEAN CORPUSCULAR HGB CONC 35 G/DL (32-36); MEAN CORPUSCULAR VOLUME 94 FL (80-99); MONOCYTES # (AUTO) 0.8 X 10^3 (0.0-1.0); MONOCYTES % (AUTO) 7 % (0-12); NEUTROPHILS # (AUTO) 7.7 X 10^3 (1.8-7.8); NEUTROPHILS % (AUTO) 69 % (42-75); PLATELET COUNT 257 10^3/uL (130-400); RED BLOOD COUNT 4.58 10^6/uL (4.35-5.85); RED CELL DISTRIBUTION WIDTH 13.4 % (10.0-14.5); WHITE BLOOD COUNT 11.2 10^3/uL (4.3-11.0)
[2018-06-02 20:53] LABS: BILIRUBIN,URINE NEGATIVE (NEGATIVE); GLUCOSE, URINE (UA) NEGATIVE (NEGATIVE); KETONES,URINE NEGATIVE (NEGATIVE); LEUKOCYTE ESTERASE ,URINE 1+ (NEGATIVE); NITRITE,URINE NEGATIVE (NEGATIVE); PH,URINE 6 (5-9); PROTEIN,URINE 2+ (NEGATIVE); UROBILINOGEN,URINE NORMAL (NORMAL)
[2018-06-02 20:54] LABS: CLARITY,URINE SLIGHTLY CLOUDY; COLOR,URINE YELLOW; WBC,URINE RARE /HPF
[2018-06-02 20:55] LABS: BACTERIA,URINE NEGATIVE /HPF
[2018-06-02 21:10] LABS: ALANINE AMINOTRANSFERASE 26 U/L (0-55); ALBUMIN 4.9 GM/DL (3.2-4.5); ALKALINE PHOSPHATASE 99 U/L (40-136); AMYLASE 51 U/L (25-125); BILIRUBIN,TOTAL 0.4 MG/DL (0.1-1.0); BUN/CREATININE RATIO 14; CALCIUM 10.2 MG/DL (8.5-10.1); CARBON DIOXIDE 22 MMOL/L (21-32); CHLORIDE 107 MMOL/L (98-107); CREATININE SERUM 1.47 MG/DL (0.60-1.30); GFR ESTIMATED 49; GLUCOSE 111 MG/DL (70-105); LIPASE 56 U/L (8-78); POTASSIUM 4.1 MMOL/L (3.6-5.0); SODIUM 142 MMOL/L (135-145); TOTAL PROTEIN 7.9 GM/DL (6.4-8.2)
--- NOTE | 2018-06-02 21:13 | Diagnostic Imaging Report ---
PROCEDURE: CT urinary tract, rule out kidney stone. TECHNIQUE: Multiple contiguous axial images were obtained through the abdomen and pelvis without the use of intravenous contrast. INDICATION: Hematuria. Left groin pain. FINDINGS: The lung bases are clear. There are bilateral renal calculi within the calyces. These number greater than 8 bilaterally. Largest measures approximately 7 mm. There is mild hydronephrosis of the left kidney and dilatation of the left ureter. There is a 3 mm calculus in the left distal ureter at the trigone of the bladder. The bladder is decompressed. The right kidney shows no hydronephrosis. The liver shows mild hepatomegaly. Gallbladder and bile ducts are normal. The pancreas and spleen are normal. The adrenal glands are normal. The aorta shows mild atherosclerosis without aneurysm. The stomach and small bowel are not distended. The colon shows normal stool and gas pattern. The appendix is normal. There is diverticulosis of the sigmoid colon without diverticulitis. There is a small inguinal hernia noted on the left containing abdominal fat. There are no bony lesions. IMPRESSION: 1. Bilateral nephrolithiasis. Hydronephrosis of the left kidney with 3 mm stone in the distal left ureter at the trigone of the bladder. 2. Diverticulosis without diverticulitis. Dictated by: Dictated on workstation # [id number]
--- NOTE | 2018-06-02 21:14 | Diagnostic Imaging Report ---
INDICATION: Left groin pain with hematuria. EXAM: KUB. FINDINGS: There are multiple calculi scattered throughout the calyces of both kidneys, the largest measuring approximately 7 mm. Renal outlines are smooth. There are multiple calcifications in the pelvis. There is one calcification in the left pelvis which measures approximately 3 mm which could represent distal ureteral calculus with patient's symptoms. The majority of these appear to be phleboliths. IMPRESSION: 1. Bilateral nephrolithiasis. 2. Question of possible small left distal ureteral stone. Dictated by: Dictated on workstation # [id number]
[2018-06-02] MEDS ORDERED: SULF1TAB35 PO (21:31)
--- OUTSIDE RECORDS SUMMARY | 2018-06-02 21:48 | XMS REPORT | Clinical Summary ---
Demographics Preferred Language Unknown Marital Status Unknown Shinto Affiliation Unknown Race Unknown Ethnic Group Unknown Author Author [facility] Organization [facility] Address Unknown Phone Unavailable Care Team Providers Care Supervisor [place] Name Role Phone PCP Unavailable Allergies Not on File Current Medications Not on file Active Problems Not on file Social History Tobacco Use Types Packs/Day Years Used Date Never Assessed Sex Assigned at Date Recorded Not on file Last Filed Vital Signs Not on file Plan of Treatment Not on file Results Not on filefrom Last 3 Months
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
[2018-06-02 21:57] VITALS: BP 170/90
== END 2018-06-02 21:59 | disposition home or self-care (01) ==
LOC: EDUNIT# 20:07 → ER 20:08
DX: N13.2 Hydronephrosis with renal and ureteral calculous obstruction (principal); I10 Essential (primary) hypertension; M10.9 Gout, unspecified; Z77.22 Contact with and (suspected) exposure to environmental tobacco smoke (acute) (chronic); Z98.890 Other specified postprocedural states
CPT/HCPCS: 36415; 74018; 74176; 80053; 81000; 82150; 83690; 85025

== ENCOUNTER 2018-07-05 10:20 | Emergency (ER) | payer OTHER ==
[~2018-07-05] VITALS: Ht 177.8 cm; Wt 98.9 kg
[~2018-07-05 10:20] MED LIST changes: +SULF1TAB35 PO
--- OUTSIDE RECORDS SUMMARY | 2018-07-05 10:25 | XMS REPORT | Clinical Summary ---
Demographics Preferred Language Unknown Marital Status Unknown Restorationist Affiliation Unknown Race Unknown Ethnic Group Unknown Author Author [facility] Organization [facility] Address Unknown Phone Unavailable Care Team Providers Care Manager Imaging Name Role Phone PCP Unavailable Allergies Not [...]
--- OUTSIDE RECORDS SUMMARY | 2018-07-05 10:25 | XMS REPORT | Continuity of Care Document ---
Author Author [facility] Organization [facility] Address Unknown Phone Unavailable Allergies Active Description Code Type Severity Reaction Onset Reported/Identified Relationship to Patient Clinical Status Yes No Known Drug Allergies [id number] Drug Allergy Unknown N/A 03/15/2012 Medications There [...] HESITANCY 12/29/2015 Ot 272.0 PURE HYPERCHOLESTEROLEM 12/29/2015 FUASTO AMAYA, NETTIE R Ot 272.4 HYPERLIPIDEMIA NEC/NOS [...] R Ot R53.81 OTHER MALAISE 03/22/2017 FAUSTO MAAYA, NETTIE R Ot R53.83 OTHER FATIGUE 03/22/2017 [...] 04/12/2017 JUDE CENTENO MD, Ot 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 04/12/2017 JUDE CENTENO MD Ot Z82.49 FAMILY HX OF ISCHEM HEART DIS AND OTH DI 10/11/2017 ANGI NATHAN MD Ot F17.290 NICOTINE DEPENDENCE, OTHER TOBACCO PRODU 10/11/2017 ANGI NATHAN MD Ot I10 ESSENTIAL (PRIMARY) HYPERTENSION 10/11/2017 ANGI NATHAN MD Ot S00.452A SUPERFICIAL FOREIGN BODY OF LEFT EAR, IN 10/11/2017 ANGI NATHAN MD Ot Z79.82 USP (CURRENT) USE OF ASPIRIN 10/11/2017 ANGI NATHAN MD Ot 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 10/14/2017 LEIGHTON DENTON [...] IN 10/15/2017 ANGI NATHAN MD Ot 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 10/15/2017 ANGI NATHAN MD Ot 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 10/15/2017 ANGI NATHAN MD Ot F17.290 NICOTINE DEPENDENCE, OTHER TOBACCO PRODU 10/15/2017 ANGI NATHAN MD Ot I10 ESSENTIAL (PRIMARY) HYPERTENSION 10/15/2017 ANGI NATHAN MD Ot S00.452A SUPERFICIAL FOREIGN BODY OF LEFT EAR, IN 10/15/2017 ANGI NATHAN MD Ot Z79.82 USP (CURRENT) USE OF ASPIRIN 10/15/2017 ANGI NATHAN MD Ot 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 10/22/2017 ANGI NATHAN MD Ot F17.290 NICOTINE DEPENDENCE, OTHER TOBACCO PRODU 10/22/2017 ANGI NATHAN MD Ot I10 ESSENTIAL (PRIMARY) HYPERTENSION 10/22/2017 ANGI NATHAN MD Ot S00.452A SUPERFICIAL FOREIGN BODY OF LEFT EAR, IN 10/22/2017 ANGI NATHAN MD Ot 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 10/22/2017 ANGI NATHAN MD Ot 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 10/28/2017 FAUSTO AMAYA [...] K Ot I10 ESSENTIAL (PRIMARY) HYPERTENSION 03/03/2018 NATACHA HARRINGTON, LEIGHTON K Ot R07.89 OTHER CHEST PAIN 03/03/2018 LEIGHTON DENTON K Ot Z72.0 TOBACCO USE 06/02/2018 FAUSTO AMAYA NETTIE R Ot R53.81 OTHER MALAISE 06/02/2018 FAUSTO AMAYA NETTIE R Ot R53.83 OTHER FATIGUE 06/02/2018 FAUSTO AMAYA NETTIE R Ot G89.29 OTHER CHRONIC PAIN 06/02/2018 FAUSTO AMAYA NETTIE R Ot M25.552 PAIN IN LEFT HIP 06/02/2018 NATACHA HARRINGTON LEIGHTON K Ot E78.5 HYPERLIPIDEMIA, UNSPECIFIED 06/02/2018 BRITTANY DENTONDITH K Ot I10 ESSENTIAL (PRIMARY) HYPERTENSION 06/02/2018 NATACHA HARRINGTON LEIGHTON K Ot R07.89 OTHER CHEST PAIN 06/02/2018 NAKITA DENTONTH K Ot Z72.0 TOBACCO USE 06/02/2018 BERNDELANEY DUY Ot I10 ESSENTIAL (PRIMARY) HYPERTENSION 06/02/2018 BERNDELANEY, DUY Ot M10.9 GOUT, UNSPECIFIED 06/02/2018 BERNDELANEY, DUY Ot 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 06/02/2018 ARMANDO GREGGIS Ot R10.2 PELVIC AND PERINEAL PAIN 06/02/2018 ARMANDO GREGGIS Ot Z77.22 CNTCT W AND EXPSR TO ENVIRON TOBACCO SMO 06/02/2018 ARMANDO GREGGIS Ot Z98.890 OTHER SPECIFIED POSTPROCEDURAL STATES 06/02/2018 FAUSTO AMAYA NETTIE R Ot R53.81 OTHER MALAISE 06/02/2018 FAUSTO AMAYA NETTIE R Ot R53.83 OTHER FATIGUE 06/02/2018 FAUSTO AMAYA NETTIE R Ot G89.29 OTHER CHRONIC PAIN 06/02/2018 FAUSTO AMAYA NETTIE R Ot M25.552 PAIN IN LEFT HIP 06/02/2018 NAKITA DENTONTH K Ot E78.5 HYPERLIPIDEMIA, UNSPECIFIED 06/02/2018 NAKITA DENTONTH K Ot I10 ESSENTIAL (PRIMARY) HYPERTENSION 06/02/2018 BRITTANY DENTONDITH K Ot R07.89 OTHER CHEST PAIN 06/02/2018 LEIGHTON DENTON Ot Z72.0 TOBACCO USE 06/04/2018 DUY GREGG Ot I10 ESSENTIAL (PRIMARY) HYPERTENSION 06/04/2018 DUY GREGG Ot M10.9 GOUT, UNSPECIFIED 06/04/2018 DUY GREGG Ot 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 06/04/2018 DUY GREGG Ot R10.2 PELVIC AND PERINEAL PAIN 06/04/2018 DYU GREGG Ot Z77.22 CNTCT W AND EXPSR TO ENVIRON TOBACCO SMO 06/04/2018 DUY GREGG Ot Z98.890 OTHER SPECIFIED POSTPROCEDURAL STATES 06/09/2018 NETTIE LAMBERT MD R Ot R53.81 OTHER MALAISE 06/09/2018 NETTIE LAMBERT MD R Ot R53.83 OTHER FATIGUE 06/09/2018 FAUSTO AMAYA NETTIE R Ot G89.29 OTHER CHRONIC PAIN 06/09/2018 NETTIE LAMBERT MD R Ot M25.552 PAIN IN LEFT HIP 06/09/2018 LEIGHTON DENTON Ot E78.5 HYPERLIPIDEMIA, UNSPECIFIED 06/09/2018 LEIGHTON DENTON Ot I10 ESSENTIAL (PRIMARY) HYPERTENSION 06/09/2018 LEIGHTON DENTON Ot R07.89 OTHER CHEST PAIN 06/09/2018 LEIGHTON DENTON Ot Z72.0 TOBACCO USE 06/09/2018 NETTIE LAMBERT MD R Ot R53.81 OTHER MALAISE 06/09/2018 FAUSTO AMAYA NETTIE R Ot R53.83 OTHER FATIGUE 06/09/2018 FAUSTO AMAYA NETTIE R Ot G89.29 OTHER CHRONIC PAIN 06/09/2018 NETTIE LAMBERT MD R Ot M25.552 PAIN IN LEFT HIP 06/09/2018 LEIGHTON DENTON Ot E78.5 HYPERLIPIDEMIA, UNSPECIFIED 06/09/2018 LEIGHTON DENTON Ot I10 ESSENTIAL (PRIMARY) HYPERTENSION 06/09/2018 LEIGHTON DENTON Ot R07.89 OTHER CHEST PAIN 06/09/2018 LEIGHTON DENTON Ot Z72.0 TOBACCO USE 06/09/2018 FAUSTO AMAYA, NETTIE R Ot R53.81 OTHER MALAISE 06/09/2018 NETTIE LAMBERT MD R Ot R53.83 OTHER FATIGUE 06/09/2018 NETTIE LAMBERT MD R Ot G89.29 OTHER CHRONIC PAIN 06/09/2018 NETTIE LAMBERT MD R Ot M25.552 PAIN IN LEFT HIP 06/09/2018 LEIGHTON DENTON Ot E78.5 HYPERLIPIDEMIA, UNSPECIFIED 06/09/2018 LEIGHTON DENTON Ot I10 ESSENTIAL (PRIMARY) HYPERTENSION 06/09/2018 LEIGHTON DENTON Ot R07.89 OTHER CHEST PAIN 06/09/2018 LEIGHTON DENTON Ot Z72.0 TOBACCO USE Procedures Code Description [place] [address] ROUTINE VENIPUNCTURE EMMA BARKLEY 06/18/2012 57297 X-RAY EXAM OF ABDOMEN MCFARLANDEMMA GLASS 06/18/2012 36588 COMPREHEN METABOLIC PANEL [facility] EMMA LEWIS 06/18/2012 19289 URINALYSIS NONAUTO W/O SCOPE [facility] EMMA LEWIS 06/18/2012 21424 COMPLETE CBC W/AUTO DIFF WBC MCFARLANDEMMA GLASS 06/18/2012 51407 EMERGENCY DEPT VISIT [facility] EMMA LEWIS 06/18/2012 62840 EMERGENCY DEPT VISIT [facility] EMMA LEWIS 06/18/2012 Results Test Result Range Automated blood [...] Status Pt. Type Provider Facility Loc./Unit Complaint [id number] 06/02/2018 20:08:00 06/02/2018 21:59:00 DIS Emergency DUY GREGG [facility] ER PELVIC/GENITAL PAIN [id number] 10/11/2017 06:59:00 10/11/2017 10:25:00 DIS Outpatient ANGI NATHAN MD [facility] SDC FOREIGN BODY LEFT EAR [id number] 10/02/2017 12:10:00 10/02/2017 23:59:59 CLS Outpatient LEIGHTON DENTON [facility] LAB R07.89 I10 E78.2 Z72.0 [id number] 04/12/2017 08:10:00 04/12/2017 23:59:59 CLS Outpatient JACOBO AMAYA, JUDE Meraz [facility] CATH CHEST PAIN [id number] 03/22/2017 10:30:00 03/22/2017 12:29:00 DIS Emergency GREY DO, SERGIO Jimenez [facility] ER LT HAND PUCNTURED BY CATFISH [id number] 09/10/2016 09:51:00 09/10/2016 23:59:59 CLS Outpatient NETTIE LAMBERT MD [facility] RAD LT HIP PAIN, CRHONIC [id number] 05/10/2016 11:10:00 05/10/2016 23:59:59 CLS Outpatient NETTIE LAMBERT MD R [facility] LAB FATIGUE,MALAISE [id number] 12/29/2015 10:57:00 12/29/2015 23:59:59 CLS Outpatient NETTIE LAMBERT MD R [facility] LAB FATIGUE [id number] 04/13/2015 16:02:00 04/13/2015 23:59:59 CLS Outpatient NETTIE LAMBERT MD R [facility] RAD [id number] 03/03/2015 08:05:00 03/03/2015 23:59:59 CLS Outpatient NETTIE LAMBERT MD R [facility] LAB [id number] 11/23/2014 12:04:00 Document Registration [id number] 11/23/2014 12:04:00 Document Registration [id number] 05/26/2012 10:14:00 Document Registration [id number] 03/15/2012 16:23:00 Document Registration [id number] 02/11/2012 15:27:00 Document Registration [id number] 11/02/2011 13:32:00 Document Registration [id number] 06/18/2012 16:54:00 Document Registration [id number] 06/18/2012 16:54:00 Document Registration
--- NOTE | 2018-07-05 10:37 | ED Abdominal Pain ---
General Chief Complaint: Abdominal/GI Problems Stated Complaint: R SIDE PAIN/NAUSEA Source of Information: Patient Exam Limitations: Intoxication History of Present Illness Date Seen by Provider: Jul 05, 2018 Time Seen by Provider: 10:34 Initial Comments This 58-year-old white male presents with a 2 day history of flank pain and hematuria. The patient's left-sided flank pain is similar to his previous kidney stones. Patient denies associated fever, chills, vomiting, associated headache, stiff neck, productive cough, shortness of breath, or chest pain. Allergies and Home Medications Allergies Coded Allergies: No Known Drug Allergies (Unverified , 03/15/12) Home Medications Ciprofloxacin HCl 5 Ml Drops, 3 DROPS OP BID 3 Drops Each Ear Prescribed by: TOYA TODD on 10/11/17 1013 Sulfamethoxazole/Trimethoprim 1 Each Tablet, 1 EACH PO BID Prescribed by: DUY GREGG on 06/02/181 Patient Home Medication List Home Medication List Reviewed: Yes Review of Systems Review of Systems Constitutional: no symptoms reported EENTM: No Blurred Vision Respiratory: Denies Cough Cardiovascular: Denies Chest Pain Gastrointestinal: Denies Abdomen Distended Genitourinary: Flank Pain (left-sided) Musculoskeletal: no symptoms reported Skin: No rash Psychiatric/Neurological: No Symptoms Reported Endocrine: No Symptoms Reported Hematologic/Lymphatic: No Symptoms Reported Past [id number] Hx Past Med/Social Hx: Reviewed Nursing Past Med/Soc Hx Patient Social History Type Used: Cigars, Smokeless Tobacco 2nd Hand Smoke Exposure: Yes Recent Foreign Travel: No Contact w/Someone Who Travel: No Recent Hopitalizations: No Immunizations Up To Date Tetanus Booster (TDap): More than 5yrs PED Vaccines UTD: No Date of Influenza Vaccine: Apr 17, 2017 Seasonal Allergies Seasonal Allergies: Yes Past Medical History Surgeries: Yes (hernia) Orthopedic Respiratory: No Cardiac: Yes Hypertension Neurological: No Reproductive Disorders: No Genitourinary: No Gastrointestinal: No Musculoskeletal: Yes Arthritis, Chronic Back Pain, Gout Endocrine: No HEENT: No Cancer: No Psychosocial: No Integumentary: No Blood Disorders: No Physical Exam Vital Signs Vital Signs - First Documented 07/05/18 10:22 Temp 97.0 Pulse 78 Resp 24 B/P (MAP) 177/90 (119) Pulse Ox 96 O2 Delivery Room Air Capillary Refill : Height/Weight/BMI Height: 5'10.00" Weight: 211lbs. 0oz. [id number]; 29.4 BMI Method:Stated General Appearance: mild distress HEENT: normal ENT inspection Neck: full range of motion, normal inspection Respiratory: chest non-tender, lungs clear, normal breath sounds Cardiovascular: normal peripheral pulses, regular rate, rhythm Gastrointestinal: normal bowel sounds, non tender, soft Extremities: normal range of motion, non-tender, normal inspection Back: normal inspection Neurologic/Psychiatric: no motor/sensory deficits, alert, normal mood/affect, oriented x 3 Skin: normal color, warm/dry Progress/Results/Core Measures Results/Orders Lab Results Laboratory Tests Test 07/05/18 10:29 Range/Units White Blood Count 10.5 4.3-11.0 10^3/uL Red Blood Count 4.25 L 4.35-5.85 10^6/uL Hemoglobin 13.7 13.3-17.7 G/DL Hematocrit 40 40-54 % Mean Corpuscular Volume 95 80-99 FL Mean Corpuscular Hemoglobin 32 25-34 PG Mean Corpuscular Hemoglobin Concent 34 32-36 G/DL Red Cell Distribution Width 13.5 10.0-14.5 % Platelet Count 225 130-400 10^3/uL Mean Platelet Volume 9.6 7.4-10.4 FL Neutrophils (%) (Auto) 75 42-75 % Lymphocytes (%) (Auto) 14 12-44 % Monocytes (%) (Auto) 9 0-12 % Eosinophils (%) (Auto) 1 0-10 % Basophils (%) (Auto) 1 0-10 % Neutrophils # (Auto) 7.9 H 1.8-7.8 X 10^3 Lymphocytes # (Auto) 1.5 1.0-4.0 X 10^3 Monocytes # (Auto) 0.9 0.0-1.0 X 10^3 Eosinophils # (Auto) 0.2 0.0-0.3 10^3/uL Basophils # (Auto) 0.1 0.0-0.1 10^3/uL Sodium Level 141 135-145 MMOL/L Potassium Level 3.9 3.6-5.0 MMOL/L Chloride Level 106 98-107 MMOL/L Carbon Dioxide Level 25 21-32 MMOL/L Anion Gap 10 5-14 MMOL/L Blood Urea Nitrogen 18 7-18 MG/DL Creatinine 1.73 H 0.60-1.30 MG/DL Estimat Glomerular Filtration Rate 41 BUN/Creatinine Ratio 10 Glucose Level 113 H 70-105 MG/DL Calcium Level 9.2 8.5-10.1 MG/DL Corrected Calcium 8.9 8.5-10.1 MG/DL Total Bilirubin 0.5 0.1-1.0 MG/DL Aspartate Amino Transf (AST/SGOT) 17 5-34 U/L Alanine Aminotransferase (ALT/SGPT) 23 0-55 U/L Alkaline Phosphatase 110 40-136 U/L Total Protein 6.9 6.4-8.2 GM/DL Albumin 4.4 3.2-4.5 GM/DL My Orders Orders - RUCHI MCCOY MD Cbc With Automated Diff (07/05/18 10:32) Comprehensive Metabolic Panel (07/05/18 10:32) Ua Culture If Indicated (07/05/18 10:32) Ct Abd/Pelvis Wo(Kidney Stone) (07/05/18 10:32) Ketorolac Injection (Toradol Injection) (07/05/18 10:45) Ondansetron Injection (Zofran Injectio (07/05/18 10:45) Ondansetron Injection (Zofran Injectio (07/05/18 10:38) Medications Given in ED Current Medications Medications Dose Ordered Sig/Ari Route Start Time Stop Time Status Last Admin Dose Admin Ketorolac Tromethamine 30 mg ONCE ONCE IVP 07/05/18 10:45 07/05/18 10:46 DC 07/05/18 10:42 30 MG Ondansetron HCl 4 mg ONCE ONCE IVP 07/05/18 10:45 07/05/18 10:46 DC 07/05/18 10:41 4 MG Vital Signs/I&O 07/05/18 10:22 Temp 97.0 Pulse 78 Resp 24 B/P (MAP) 177/90 (119) Pulse Ox 96 O2 Delivery Room Air Progress Progress Note : Time: 12:26 Progress Note The patient's CT demonstrated a 5 mm stone in the midportion of the left ureter. The patient's pain was relieved with the IV Toradol. I recommended patient continue with his Toradol at home and follow-up with Dr. Tucker on Saturday for referral to urology. I offered the patient Flomax to be taken with the ketorolac. I asked him to return if any problems or questions. Departure Impression Primary Impression: Kidney stone Disposition: 01 HOME, SELF-CARE Condition: Improved Departure-Patient Inst. Decision time for Depature: 12:28 Referrals: NETTIE TUCKER MD (PCP/Family) Primary Care Physician KIMBERLY MINAYA MD Patient Instructions: Kidney Stones (DC) Add. Discharge Instructions: Flomax and Toradol as prescribed. Follow-up with Doctors Caitlin and Stephanie. All discharge instructions reviewed with patient and/or family. Voiced understanding. RUCHI MCCOY MD Jul 05, 2018 10:36
[2018-07-05] MEDS ORDERED: ONDANSETRON 4 MG/2 ML (SDV) Z0FRAN ONE (10:38)
[2018-07-05 10:42] LABS: BASOPHILS # (AUTO) 0.1 10^3/uL (0.0-0.1); BASOPHILS % (AUTO) 1 % (0-10); EOSINOPHILS # (AUTO) 0.2 10^3/uL (0.0-0.3); EOSINOPHILS % (AUTO) 1 % (0-10); HEMATOCRIT 40 % (40-54); HEMOGLOBIN 13.7 G/DL (13.3-17.7); LYMPHOCYTES # (AUTO) 1.5 X 10^3 (1.0-4.0); LYMPHOCYTES % (AUTO) 14 % (12-44); MEAN CORPUSCULAR HEMOGLOBIN 32 PG (25-34); MEAN CORPUSCULAR HGB CONC 34 G/DL (32-36); MEAN CORPUSCULAR VOLUME 95 FL (80-99); MEAN PLATELET VOLUME 9.6 FL (7.4-10.4); MONOCYTES # (AUTO) 0.9 X 10^3 (0.0-1.0); MONOCYTES % (AUTO) 9 % (0-12); NEUTROPHILS # (AUTO) 7.9 X 10^3 (1.8-7.8); NEUTROPHILS % (AUTO) 75 % (42-75); PLATELET COUNT 225 10^3/uL (130-400); RED BLOOD COUNT 4.25 10^6/uL (4.35-5.85); RED CELL DISTRIBUTION WIDTH 13.5 % (10.0-14.5); WHITE BLOOD COUNT 10.5 10^3/uL (4.3-11.0)
[2018-07-05] MEDS ORDERED: KETOROLAC 30 MG/ML VIAL IVP ONE (10:45)
[2018-07-05] MEDS ORDERED: ONDANSETRON 4 MG/2 ML (SDV) Z0FRAN IVP ONE (10:45)
[2018-07-05 10:56] LABS: ALBUMIN 4.4 GM/DL (3.2-4.5); BILIRUBIN,TOTAL 0.5 MG/DL (0.1-1.0); CALCIUM 9.2 MG/DL (8.5-10.1); CREATININE SERUM 1.73 MG/DL (0.60-1.30); POTASSIUM 3.9 MMOL/L (3.6-5.0); TOTAL PROTEIN 6.9 GM/DL (6.4-8.2)
--- NOTE | 2018-07-05 11:40 | Diagnostic Imaging Report ---
PROCEDURE: CT urinary tract, rule out kidney stone. TECHNIQUE: Multiple contiguous axial images were obtained through the abdomen and pelvis without the use of intravenous contrast. INDICATION: Left flank pain and hematuria. COMPARISON is made with prior CT from 06/02/2018. FINDINGS: The lung bases are clear. No discrete liver mass is seen. The gallbladder is unremarkable. The pancreas and spleen are unremarkable. No adrenal mass is identified. Bilateral nonobstructing renal calculi are again noted. There is mild left-sided hydroureteronephrosis. This appears to be caused by a 4-5 mm calculus in the mid left ureter. There is periureteral inflammatory stranding. No other ureteral calculi are seen. The bladder is unremarkable. Bowel loops are normal caliber. There is sigmoid diverticulosis but no evidence of acute diverticulitis. No free fluid is seen. IMPRESSION: 1. Bilateral nonobstructing nephrolithiasis. There is also a 5 mm calculus in the mid left ureter producing mild to moderate hydroureteronephrosis. 2. Uncomplicated diverticulosis. Dictated by: Dictated on workstation # [id number]
[2018-07-05 12:30] LABS: BILIRUBIN,URINE NEGATIVE (NEGATIVE); CLARITY,URINE CLEAR; COLOR,URINE YELLOW; GLUCOSE, URINE (UA) NEGATIVE (NEGATIVE); KETONES,URINE NEGATIVE (NEGATIVE); LEUKOCYTE ESTERASE ,URINE 2+ (NEGATIVE); NITRITE,URINE NEGATIVE (NEGATIVE); PH,URINE 5 (5-9); PROTEIN,URINE 2+ (NEGATIVE); UROBILINOGEN,URINE NORMAL (NORMAL)
[2018-07-05 12:37] LABS: BACTERIA,URINE FEW /HPF; RBC,URINE >100 /HPF
[2018-07-05 12:53] VITALS: BP 135/88
== END 2018-07-05 12:53 | disposition home or self-care (01) ==
LOC: EDUNIT# 10:20 → ER 10:21
DX: N20.0 Calculus of kidney (principal); I10 Essential (primary) hypertension; M10.9 Gout, unspecified; Z77.22 Contact with and (suspected) exposure to environmental tobacco smoke (acute) (chronic); Z87.19 Personal history of other diseases of the digestive system
CPT/HCPCS: 36415; 74176; 80053; 81000; 85025; 87088; 96374; 96375